=== PATIENT | female | born 1950 | race Caucasian/White ===

== ENCOUNTER 2019-11-21 16:14 | Observation (INO) | payer MEDICARE, OTHER ==
[2019-11-21] MEDS ORDERED: Sodium Chloride 0.9% 10 ML FLUSH Syringe IV PRN (17:30)
[2019-11-21] MEDS ORDERED: Levofloxacin 500MG/100ML D5W 500 MG/100 ML BAG IV SCH (18:00)
[2019-11-21] MEDS: Lasix 20 MG/2 ML IV SCH (19:25)
[2019-11-21 19:37] LABS: Appearance SLIGHTLY CLOUDY (CLEAR); Bilirubin NEGATIVE (NEGATIVE); Blood NEGATIVE Ery/ul (0-5); Epithelial Cells RARE /HPF (FEW); Glucose NEGATIVE (NEGATIVE); Ketones NEGATIVE (NEGATIVE); Leukocyte Esterase NEGATIVE (NEGATIVE); Mucus SLIGHT /HPF (NEGATIVE); Nitrite NEGATIVE (NEGATIVE); Protein,Urine Dip 30 (Negative); RBC 0-2 /HPF (0-2); Specific Gravity 1.017 (1.005-1.025); Urobilinogen 4 mg/dL (0-1)
[2019-11-21] MEDS ORDERED: Klor Con 10 MEQ PO ONE (21:16)
[2019-11-21] MEDS: Lyrica 50MG PO SCH (21:30)
[2019-11-21] MEDS: Sodium Chloride 0.9% 10 ML FLUSH Syringe IV SCH (21:31)
[2019-11-21] MEDS: Klor Con 10 MEQ PO SCH (21:31)
[2019-11-21] MEDS ORDERED: PATIENT OWN MEDICATION IH PRN (21:55)
[2019-11-21] MEDS ORDERED: ECOTRIN 81 MG PO SCH (22:00)
[2019-11-21] MEDS ORDERED: Calcium 500MG W/Vit D Tablet PO SCH (22:00)
[2019-11-22 04:09] LABS: ANION GAP 11.6 MEQ/L (5-15); BLOOD UREA NITROGEN 14 mg/dL (7-17); CHLORIDE 102 mmol/L (98-107); Carbon Dioxide 29 mmol/L (22-30); Cholesterol 137 mg/dL (50-200); Creatinine 1 0.89 mg/dL (0.52-1.04); Glucose 85 mg/dL (74-106); HDL CHOLESTEROL 35 mg/dL (40-60); LDL, DIRECT 86 mg/dL (30-100); Potassium 4.1 mmol/L (3.5-5.1); Risk Ratio 3.9; SODIUM 138 mmol/L (137-145); TRIGLYCERIDE 88 mg/dL (30-150)
[2019-11-22 04:14] LABS: Absolute Neutrophil Ct (ANC) 3.57 (1.4-6.9); BASOPHIL % 0.6 % (0.0-0.4); Basophil (Absolute #) 0.03 (0-0.4); Eosinophil (Absolute #) 0.34 (0-0.5); Hematocrit 33.9 % (35-47); Hemoglobin 10.6 gm/dl (12.0-16.0); Lymphocyte (Absolute #) 0.57 (1.0-4.6); Lymphocytes % 11.7 % (24.0-44.0); Mean Cell Volume 85.2 fl (78-100); Mean Corpuscular Hemoglobin 26.6 pg (26-32); Mean Corpuscular Hgb Concent. 31.3 g/dl (32-36); Mean Platelet Volume 11.5 fl (7.5-11.0); Monocyte (Absolute #) 0.35 (0.0-1.3); Monocytes % 7.2 % (0.0-12.0); Neutrophil % 73.5 % (36.0-66.0); Platelet Count 277 K/mm3 (150-450); Red Blood Count 3.98 M/mm3 (4.1-5.4); Red Cell Distribution Width 18.4 % (11.5-14.0); White Blood Count 4.9 K/mm3 (4.0-10.5)
[2019-11-22] MEDS: Lasix 20 MG/2 ML IV SCH (06:05)
[2019-11-22] MEDS: Sodium Chloride 0.9% 10 ML FLUSH Syringe IV SCH (06:05)
--- NOTE | 2019-11-22 07:56 | PCM.HP.ADD ---
Addendum to History & Physical - History & Physical Addendum Addendum to History & Physical: This certifies that the History & Physical in the electronic chart reflects the current health status of the patient. If there are changes in the H&P these changes/exceptions are listed as follows.
[2019-11-22 08:02] LABS: Slide Review 1 YES
--- NOTE | 2019-11-22 09:00 | PCM.DS ---
Discharge Summary Date of Admission: 11/21/19 16:44 Admitting Physician: MAHIN BRIZUELA DO Primary Care Provider: MAHIN BRIZUELA DO Allergies Allergies Penicillins Allergy (Unknown, Verified 11/21/19 18:08) Swelling Hospital Summary - Hospital Course Hospital Course: Pt is a 69 yo female with PMHx HTN, RA, and CHF who was admitted directly by Dr. Brizuela for increased SOB and cough, wtih LE edema; also wanted to r/o paroxysmal afib. CXR with bibasilar effusions, cannot r/o pneumonia. She was started on IV levaquin and IV lasix (20 BID) with good urine output. Respiratory swab + for enterovirus/rhinovirus. WBC nl, BMP nl, trop neg x 2, UA neg. No sign of afib overnight. Her cough has basically resolved; still has a little LE edema. She is cristina po well and would like to go home. - Vitals & Intake/Output Vital Signs: Vital Signs Temperature 98.1 F 11/22/19 07:58 Pulse Rate 97 H 11/22/19 07:58 Respiratory Rate 19 11/22/19 07:58 Blood Pressure 115/69 11/22/19 07:58 O2 Sat by Pulse Oximetry 93 L 11/22/19 07:58 Intake & Output: Intake & Output 11/19/19 11/20/19 11/21/19 11/22/19 11:59 11:59 11:59 11:59 Intake Total 695 Output Total 2300 Balance -1605 Weight 87.5 kg - Lab Result Diagrams: 11/22/19 03:30 11/22/19 03:30 Lab Results-Last 24 Hrs: Lab Results-Last 24 Hours 11/21/19 11/21/19 11/21/19 Range/Units 17:54 18:00 21:20 WBC (4.0-10.5) K/mm3 RBC (4.1-5.4) M/mm3 Hgb (12.0-16.0) gm/dl Hct (35-47) % MCV (78-100) fl MCH (26-32) pg MCHC (32-36) g/dl RDW (11.5-14.0) % Plt Count (150-450) K/mm3 MPV (7.5-11.0) fl Gran % (36.0-66.0) % Eos # (Auto) (0-0.5) Absolute Lymphs (auto) (1.0-4.6) Absolute Monos (auto) (0.0-1.3) Lymphocytes % (24.0-44.0) % Monocytes % (0.0-12.0) % Eosinophils % (0.00-5.0) % Basophils % (0.0-0.4) % Absolute Granulocytes (1.4-6.9) Basophils # (0-0.4) Sodium (137-145) mmol/L Potassium (3.5-5.1) mmol/L Chloride (98-107) mmol/L Carbon Dioxide (22-30) mmol/L Anion Gap (5-15) MEQ/L BUN (7-17) mg/dL Creatinine (0.52-1.04) mg/dL Estimated GFR ML/MIN Glucose (74-106) mg/dL Calcium (8.4-10.2) mg/dL Troponin I < 0.012 (0.000-0.034) ng/mL Triglycerides (30-150) mg/dL Cholesterol (50-200) mg/dL LDL Cholesterol (30-100) mg/dL HDL Cholesterol (40-60) mg/dL Heart Disease Risk Ratio Urine Color YELLOW (YELLOW) Urine Appearance SLIGHTLY CLOUDY (CLEAR) Urine pH 6.0 (5-6) Ur Specific [place] 1.017 (1.005-1.025) Urine Protein 30 (Negative) Urine Ketones NEGATIVE (NEGATIVE) Urine Blood NEGATIVE (0-5) Tony/ul Urine Nitrite NEGATIVE (NEGATIVE) Urine Bilirubin NEGATIVE (NEGATIVE) Urine Urobilinogen 4 (0-1) mg/dL Ur Leukocyte Esterase NEGATIVE (NEGATIVE) Urine WBC (Auto) NONE (0-5) /HPF Urine RBC (Auto) 0-2 (0-2) /HPF U Hyaline Cast (Auto) 3-5 (0-2) /LPF U Epithel Cells (Auto) RARE (FEW) /HPF Urine Bacteria (Auto) NONE (NEGATIVE) /HPF Urine Mucus (Auto) SLIGHT (NEGATIVE) /HPF Urine Culture Reflexed NO (NO) Urine Glucose NEGATIVE (NEGATIVE) mg/dL Nasal Coronavir HKU1 PCR NEGATIVE (NEGATIVE) Nasal Coronavir NL63 PCR NEGATIVE (NEGATIVE) Nasal Coronavir OC43 PCR NEGATIVE (NEGATIVE) Nasal Enterovir/Rhinovir PCR POSITIVE A (NEGATIVE) Nasal Parainfluen 1 PCR NEGATIVE (NEGATIVE) Nasal Parainfluen 2 PCR NEGATIVE (NEGATIVE) Nasal Parainfluen 3 PCR NEGATIVE (NEGATIVE) Nasal Parainfluen 4 PCR NEGATIVE (NEGATIVE) RSV Nasal Swab NEGATIVE (NEGATIVE) Adenovirus (PCR) NEGATIVE (NEGATIVE) B. parapertussis Ag NEGATIVE (NEGATIVE) C. pneumoniae DNA (PCR) NEGATIVE (NEGATIVE) Coronavirus 229E (PCR) NEGATIVE (NEGATIVE) Human Metapneumovir PCR NEGATIVE (NEGATIVE) Influ A (H1N1/09) PCR NEGATIVE (NEGATIVE) Influ B Molecular Assay NEGATIVE (NEGATIVE) M. pneumoniae (PCR) NEGATIVE (NEGATIVE) Slides for Path Review Bordetella pertussis (PCR) NEGATIVE (NEGATIVE) 11/22/19 11/22/19 11/22/19 Range/Units 03:30 03:30 03:30 WBC 4.9 (4.0-10.5) K/mm3 RBC 3.98 L (4.1-5.4) M/mm3 Hgb 10.6 L (12.0-16.0) gm/dl Hct 33.9 L (35-47) % MCV 85.2 (78-100) fl MCH 26.6 (26-32) pg MCHC 31.3 L (32-36) g/dl RDW 18.4 H (11.5-14.0) % Plt Count 277 (150-450) K/mm3 MPV 11.5 H (7.5-11.0) fl Gran % 73.5 H (36.0-66.0) % Eos # (Auto) 0.34 (0-0.5) Absolute Lymphs (auto) 0.57 L (1.0-4.6) Absolute Monos (auto) 0.35 (0.0-1.3) Lymphocytes % 11.7 L (24.0-44.0) % Monocytes % 7.2 (0.0-12.0) % Eosinophils % 7.0 H (0.00-5.0) % Basophils % 0.6 (0.0-0.4) % Absolute Granulocytes 3.57 (1.4-6.9) Basophils # 0.03 (0-0.4) Sodium 138 (137-145) mmol/L Potassium 4.1 (3.5-5.1) mmol/L Chloride 102 (98-107) mmol/L Carbon Dioxide 29 (22-30) mmol/L Anion Gap 11.6 (5-15) MEQ/L BUN 14 (7-17) mg/dL Creatinine 0.89 (0.52-1.04) mg/dL Estimated GFR > 60.0 ML/MIN Glucose 85 (74-106) mg/dL Calcium 9.0 (8.4-10.2) mg/dL Troponin I < 0.012 (0.000-0.034) ng/mL Triglycerides 88 (30-150) mg/dL Cholesterol 137 (50-200) mg/dL LDL Cholesterol 86 (30-100) mg/dL HDL Cholesterol 35 L (40-60) mg/dL Heart Disease Risk Ratio 3.9 Urine Color (YELLOW) Urine Appearance (CLEAR) Urine pH (5-6) Ur Specific [place] (1.005-1.025) Urine Protein (Negative) Urine Ketones (NEGATIVE) Urine Blood (0-5) Tony/ul Urine Nitrite (NEGATIVE) Urine Bilirubin (NEGATIVE) Urine Urobilinogen (0-1) mg/dL Ur Leukocyte Esterase (NEGATIVE) Urine WBC (Auto) (0-5) /HPF Urine RBC (Auto) (0-2) /HPF U Hyaline Cast (Auto) (0-2) /LPF U Epithel Cells (Auto) (FEW) /HPF Urine Bacteria (Auto) (NEGATIVE) /HPF Urine Mucus (Auto) (NEGATIVE) /HPF Urine Culture Reflexed (NO) Urine Glucose (NEGATIVE) mg/dL Nasal Coronavir HKU1 PCR (NEGATIVE) Nasal Coronavir NL63 PCR (NEGATIVE) Nasal Coronavir OC43 PCR (NEGATIVE) Nasal Enterovir/Rhinovir PCR (NEGATIVE) Nasal Parainfluen 1 PCR (NEGATIVE) Nasal Parainfluen 2 PCR (NEGATIVE) Nasal Parainfluen 3 PCR (NEGATIVE) Nasal Parainfluen 4 PCR (NEGATIVE) RSV Nasal Swab (NEGATIVE) Adenovirus (PCR) (NEGATIVE) B. parapertussis Ag (NEGATIVE) C. pneumoniae DNA (PCR) (NEGATIVE) Coronavirus 229E (PCR) (NEGATIVE) Human Metapneumovir PCR (NEGATIVE) Influ A (H1N1/09) PCR (NEGATIVE) Influ B Molecular Assay (NEGATIVE) M. pneumoniae (PCR) (NEGATIVE) Slides for Path Review YES Bordetella pertussis (PCR) (NEGATIVE) - Radiology Exams Ordered Rad Exams-Entire Visit: Radiology Procedures Category Date Time Status ECHO W/2D AND DOPPLER [US] Routine Exams 11/22/19 08:00 Ordered - Procedures and Test Procedures and Tests throughout Hospitalization: Therapy Orders & Screens 11/21/19 17:34 Respiratory Therapy Consult ROUTINE Comment: Reason For Exam: Diagnosis: CHF POSSIBLY UNDERLYING PNEUMONIA 11/21/19 18:41 RT Screen per Nursing Assess ONCE Comment: Protocol Order Physician Instructions: Greater than 3 points order RT Admission Screen Reason For Exam: Triggered on Admission Diagnosis: CHF POSSIBLY UNDERLYING PNEUMONIA Diagnosis: CHF POSSIBLY UNDERLYING PNEUMONIA Pneumonia: No Home O2: No Asthma: Yes CHF: No Home CPAP/BIPAP: No Home Nebs/MDI: Yes Total Points: 9 11/21/19 21:17 Respiratory Therapy Assessment DAILY Comment: Diagnosis: CHF POSSIBLY UNDERLYING PNEUMONIA Discharge Exam General Appearance: no apparent distress, alert Neurologic Exam: oriented x 3, cooperative Eye Exam: eyes nml inspection Ears, Nose, Throat Exam: moist mucous membranes Neck Exam: normal inspection, non-tender, No lymphadenopathy Respiratory Exam: normal breath sounds, lungs clear, No crackles/rales, No rhonchi, No wheezing Cardiovascular Exam: regular rate/rhythm, normal heart sounds, No murmur Gastrointestinal/Abdomen Exam: soft, normal bowel sounds, No tenderness, No distention, No mass, No guarding, No rebound Extremity Exam: swelling (1+ pretibial edema bilat), other (joint deformities bilat hands grossly) Skin Exam: normal color, warm, dry, No rash Final Diagnosis/Problem List - Final Discharge Diagnosis/Problem (1) CHF (congestive heart failure) Current Visit: Yes Status: Acute Assessment & Plan: Much improved; pt to have echo this morning then will d/c home on po lasix x 3d ; recheck BMP on Wednesday. Code(s): I50.9 - HEART FAILURE, UNSPECIFIED (2) HTN (hypertension) Current Visit: Yes Status: Chronic Code(s): I10 - ESSENTIAL (PRIMARY) HYPERTENSION (3) Rhinovirus infection Current Visit: Yes Status: Acute Assessment & Plan: Feeling much better. Code(s): B34.8 - OTHER VIRAL INFECTIONS OF UNSPECIFIED SITE (4) Rheumatoid arthritis Current Visit: Yes Status: Chronic Assessment & Plan: On rituxan collin, seesonam Myrick in [place]. Code(s): M06.9 - RHEUMATOID ARTHRITIS, UNSPECIFIED - Discharge Disposition: Home, Self-Care Condition: Good Prescriptions: New Potassium Chloride 10 Meq Tab* [Klor Con 10 MEQ] 10 meq PO BID #6 tab Furosemide 20 mg [Lasix 20 mg] 20 mg PO DAILY #3 tablet Continue Rituximab [Rituxan] 10 mg IJ UD Cyanocobalamin (Vitamin B-12) [Vitamin B-12] 1,000 mcg PO DAILY Multivitamin [Multi-Vitamin Daily] 1 tab PO DAILY Folic Acid 1 mg [Folate 1 mg] 1 mg PO DAILY Allopurinol 100 mg [Zyloprim 100 mg] 100 mg PO DAILY Aspirin EC 81 mg [Ecotrin 81 mg] 81 mg PO HS Omeprazole 20 mg PO DAILY Levothyroxine Sodium 88 mcg PO DAILY Hasmukh/D3/Mag11/Zinc/Emergency Response Technician/Tushar/Bor [Caltrate 600+D Plus Tablet] 1 tab PO HS Ergocalciferol (Vitamin D2) [Vitamin D2] 1,250 mcg PO WEEKLY Celecoxib 100 mg [celeBREX 100 MG] 200 mg PO DAILY Methotrexate Sodium 2.5 mg [Trexall 2.5 mg] 2.5 mg PO WEEKLY Loratadine 10 mg PO DAILY Alendronate Sodium 70 mg PO WEEKLY lisinopriL [Lisinopril] 20 mg PO DAILY Pregabalin 50 mg PO BID Albuterol Sulfate [Ventolin Hfa] 2 puff IH BID Follow up with: MAHIN BRIZUELA DO [Primary Care Provider] - 1 Week
[2019-11-22] MEDS: Lyrica 50MG PO SCH (09:21)
[2019-11-22] MEDS: Klor Con 10 MEQ PO SCH (09:22)
[2019-11-22] MEDS: ZYLOPRIM 100 MG PO SCH ×2 (09:22→09:29)
[2019-11-22] MEDS ORDERED: NON-FORMULARY ITEM (Cyanocobalamin (Vitamin B-12) [Vitamin B-12] 1,000 MCG) PO SCH (10:00)
[2019-11-22] MEDS ORDERED: SYNTHROID 88 MCG PO SCH (10:00)
[2019-11-22] MEDS ORDERED: Protonix 40MG Tablet PO SCH (10:00)
[2019-11-22] MEDS ORDERED: Vitamin B-12 500 MCG PO SCH (10:00)
[2019-11-22] MEDS ORDERED: FOLATE 1 MG PO SCH (10:00)
[2019-11-22] MEDS ORDERED: celeBREX 100 MG PO SCH (10:00)
[2019-11-22] MEDS ORDERED: CLARITIN 10 MG PO SCH (10:00)
[2019-11-22] MEDS ORDERED: Zestril 20 MG PO SCH (10:00)
[2019-11-22 11:11] VITALS: BP 147/64; PULSE 94; O2SAT 94
[2019-11-22] MEDS ORDERED: Furosemide 100mg/10 ml Vial IV ONE (11:15)
--- NOTE | 2019-11-22 12:43 | ECHO ---
Transthoracic echocardiographic examination and color Doppler was done on 11/22/2019. INDICATION: Shortness of breath, congestive heart failure. IMPRESSION: LARGE CIRCUMFERENTIAL PERICARDIAL EFFUSION. The left ventricle was visualized and demonstrated mild left ventricular hypertrophy. There is no definite wall motion abnormality. Estimated global left ventricular ejection fraction around 50 to 60%. The mitral valve appears to open adequately. There is trace mitral regurgitation. Left atrium is normal. The aortic valve appears to open adequately. The right side chambers are normal. There is a large circumferential pericardial effusion. I could not rule out early tamponade physiology. The results relayed to Dr. Tonie Sims.
== END 2019-11-22 12:06 | disposition short-term general hospital (02) ==
LOC: MED SURG 16:44
PROVIDERS: ADMIT Family Medicine; ATTEND Family Medicine
DX: I11.0 Hypertensive heart disease with heart failure (principal); I50.9 Heart failure, unspecified; I31.3 Pericardial effusion (noninflammatory); E87.6 Hypokalemia; M06.9 Rheumatoid arthritis, unspecified; B34.8 Other viral infections of unspecified site; E03.9 Hypothyroidism, unspecified; I49.9 Cardiac arrhythmia, unspecified; K21.9 Gastro-esophageal reflux disease without esophagitis; M79.7 Fibromyalgia; D64.9 Anemia, unspecified; E78.00 Pure hypercholesterolemia, unspecified; Z79.899 Other long term (current) drug therapy
CPT/HCPCS: 36415; 80048; 80061; 81001; 83721; 84484; 85025; 87486; 87581; 87633; 87798; 93005; 93268; 93306; 94760; 94762; G0378; J1940; J1956; A9270-GY